=== PATIENT | female | born 1990 | race African-American/Black ===

== ENCOUNTER 2016-12-08 22:25 | Emergency (ER) | payer OTHER ==
--- NOTE | 2016-12-08 23:03 | ERRECORD ---
[facility] EMERGENCY RECORD HPI PELVIC PAIN (22:52 BLEW) CHIEF COMPLAINT: Patient presents for evaluation of pelvic pain. HISTORIAN: History provided by patient, patient is 37 wk female who presents with 2 hours of pelvic cramping. She states she has felt no cramping all day, but thought that maybe the baby was just "sleeping". Denies vag bleeding or fluid (just a d/c that has been present for weeks). Denies trauma. Cramping is occuring every 30 minutes or so (not regular). has been uneventful thus far and she is under the care of a doctor in [place]. SEVERITY: Maximum severity of symptoms moderate, Currently symptoms are moderate. TIME COURSE: Sudden onset of symptoms, are intermittent. ASSOCIATED WITH: No associated bright red blood per rectum, No associated chills, No associated constipation, No associated diarrhea, No associated fever, No associated flank pain, No associated groin pain, No associated hematemesis, No associated urinary tract infection signs or symptoms, No associated vomiting, No associated vaginal bleeding, Denies any other complaints. EXACERBATED BY: Patient's condition exacerbated by nothing. RELIEVED BY: Patient's condition relieved by nothing. ROS (22:54 BLEW) CONSTITUTIONAL: Historian denies chills, denies fever. GI: Historian denies constipation, denies diarrhea, denies hematemesis, denies vomiting. GENITOURINARY FEMALE: Historian denies vaginal bleeding. NOTES: All systems reviewed, negative except as described above. PAST MEDICAL HISTORY (22:31 MBOS) MEDICAL HISTORY: Flu vaccine not up to date, Tetanus immunization up to date, Pneumococcal vaccine not up to date. FEMALE SURGICAL HISTORY: Patient has no surgical history. PSYCHIATRIC HISTORY: No previous psychiatric history. SOCIAL HISTORY: Patient denies alcohol use, Patient denies drug use, Patient has no smoking history. KNOWN ALLERGIES No Known Drug Allergies CURRENT MEDICATIONS (22:30 MBOS) None VITAL SIGNS (22:28 MBOS) VITAL SIGNS: BP: 107/64, Pulse: 100, Resp: 20, Temp: 98.4 (Oral), Pain: 5, O2 sat: 97, Time: 12/08/2016 22:28. PHYSICAL EXAM (22:55 BLEW) CONSTITUTIONAL: Vital signs reviewed, Patient appears non toxic, &a-1R&a+25V*p+0X*[id number]*c202B*c15G*c2P*p-0X&a-25V&a+1R Name: Brunilda Sweet V : 1990 F26 MedRec: [id number] AcctNum: [id number] Prepared: Callie Dec 09, 2016 08:03 by Interface Page 1 of 3 pMD [facility] EMERGENCY RECORD Patient alert and oriented to person, place and time, Pt is in no apparent distress. HEAD: Head exam included findings of head atraumatic, normocephalic. EYES: Eye exam included findings of eyelids normal to inspection, Pupils equally round and reactive to light, Extraocular muscles intact. ENT: ENT exam normal, Nose exam normal, no nasal deformity, no bleeding from nares, Pharynx exam normal, Mouth exam normal, mucous membranes moist. NECK: Neck exam included findings of normal range of motion, Trachea midline. RESPIRATORY CHEST: Respiratory and chest exam normal, Breath sounds clear, No wheezing, No rales, Chest exam included findings of chest movement symmetrical, Chest expansion equal. CARDIOVASCULAR: Cardiovascular assessment normal, Cardiovascular exam included findings of heart rate regular rate and rhythm, Heart sounds normal. ABDOMEN FEMALE: Abdominal exam included findings of abdomen nontender, Bowel sounds normal, Uterus is enlarged c/w dates. No movement felt during my exam. BACK: Back exam included findings of normal inspection, range of motion normal, no costovertebral angle tenderness. UPPER EXTREMITY: Upper extremity exam included findings of inspection normal, Range of motion normal. LOWER EXTREMITY: Lower extremity exam included findings of inspection normal, Range of motion normal. NEURO: Neuro exam findings include patient oriented to person, place and time, Speech normal, no focal motor deficits, no focal sensory deficits. SKIN: Skin exam included findings of skin warm, dry, and normal in color. LYMPHATIC: Lymphatic exam normal. PSYCHIATRIC: Psychiatric exam included findings of patient oriented to person place and time, Normal affect. DOCTOR NOTES (22:55 BLEW) TEXT: Patient has good FHT by doppler. Explained that patient would need to be transferred for evaluation by U/S and toco monitoring. At that point, she said that she could now feel the baby and that she did not want to be transferred. I recommended continued monitoring and she decided to leave [place]. I suspect that she may be driving directly to another hospital rather than going through the transfer process. PROBLEM LIST No recorded problems DIAGNOSIS (22:53 MBOS) FINAL: PRIMARY: Decreased movement. &a-1R&a+25V*p+0X*[id number]*c202B*c15G*c2P*p-0X&a-25V&a+1R Name: Brunilda Sweet V : 1990 F26 MedRec: [id number] AcctNum: [id number] Prepared: TueDec 09, 2016 08:03 by Interface Page 2 of 3 pMD [facility] EMERGENCY RECORD PRESCRIPTION No recorded prescriptions DISPOSITION (22:53 MBOS) PATIENT: Disposition Type: Eloped, Disposition: Against Medical Advice, Patient left the department. Fraser: DOMINIQUE=DO Mendez Brandon MBOS=DAMI Portillo, Mulu &a-1R&a+25V*p+0X*[id number]*c202B*c15G*c2P*p-0X&a-25V&a+1R Name: Bashir Sweetpatricio Merino : 1990 F26 MedRec: [id number] AcctNum: [id number] Prepared: TueDec 09, 2016 08:03 by Interface Page 3 of 3 pMD MTDD
--- NOTE | 2016-12-08 23:06 | PICIS ---
[facility] EMERGENCY RECORD TRIAGE (TueDec 08, 2016 22:30 MBOS) TRIAGE NOTES: has not felt movement since this morning, started cramping about an hour ago. 37 weeks . (TueDec 08, 2016 22:30 MBOS) PATIENT: NAME: Brunilda Sweet V, AGE: 26, GENDER: female, : Tue1990, TIME OF GREET: TueDec 08, 2016 22:26, PREFERRED LANGUAGE: Azeri, ETHNICITY: Not or , ECODE BILLING MAP: [facility], SSN: [id number], Zip Code: [address], KG WEIGHT: [phone], PHONE: , , , PERSON ID: [id number], PCP: Out of town. (TueDec 08, 2016 22:30 MBOS) COMPLAINT: CRAMPING,NO MOVEMENT FELT FROM BABY. (TueDec 08, 2016 22:30 MBOS) ADMISSION: URGENCY: 3 Urgent, ADMISSION SOURCE: Home, TRANSPORT: CAR, BED: ER -05. (TueDec 08, 2016 22:30 MBOS) ASSESSMENT: Assessment: has not felt movement since this morning, started feeling cramping about an hour ago. Denies any bleeding or fluid leakage. (22:31 MBOS) PAIN: Patient complains of pain described as, cramping, on a scale 0-10 patient rates pain as 5. (22:31 MBOS) IMMUNIZATIONS: Flu vaccine not up to date, Tetanus immunization up to date, Pneumococcal vaccine not up to date. (22:31 MBOS) SIRS SCORING: Heart Rate 55-109 (0), Temp range 96.8-101.1 (0), respiratory rate 12-24 (0). (22:31 MBOS) PROVIDERS: TRIAGE NURSE: Mulu Portillo RN. (TueDec 08, 2016 22:30 MBOS) VITAL SIGNS: BP 107/64, Pulse 100, Resp 20, Temp 98.4, (Oral), Pain 5, O2 Sat 97, Time 12/08/2016 22:28. (22:28 MBOS) PREVIOUS VISIT ALLERGIES: No Known Drug Allergies. (TueDec 08, 2016 22:30 MBOS) No Known Drug Allergies. (22:31 MBOS) KNOWN ALLERGIES No Known Drug Allergies CURRENT MEDICATIONS (22:30 MBOS) None VITAL SIGNS (22:28 MBOS) VITAL SIGNS: BP: 107/64, Pulse: 100, Resp: 20, Temp: 98.4 (Oral), Pain: 5, O2 sat: 97, Time: 12/08/2016 22:28. NURSING ASSESSMENT: ABDOMEN (22:31 MBOS) CONSTITUTIONAL: Patient arrives ambulatory, Gait steady, History obtained from patient, Patient appears comfortable, Patient cooperative, Patient alert, Oriented to person, place and time, Skin warm, Skin dry, Skin normal in color, Mucous membranes pink, Mucous membranes moist, Patient is well-groomed, Patient complains of &a-1R&a+25V*p+0X*z5951P*c202B*c15G*c2P*p-0X&a-25V&a+1R Name: Brunilda Sweet V : 1990 F26 MedRec: [id number] AcctNum: [id number] Prepared: Callie Dec 09, 2016 08:08 by Interface Page 1 of 4 pMD [facility] EMERGENCY RECORD decreased movement, cramping. PAIN: cramping pain, on a scale 0-10 patient rates pain as 5. ABDOMEN: Abdomen assessment findings include abdomen symmetrical. GENITOURINARY FEMALE: Associated with vaginal discharge, moderate amount, of thin, white discharge, Patient reports normal discharge. Denies any fluid leakage from vagina., no associated vaginal bleeding, , per patient, Gestational age third trimester by history, : 2, Para: 0, Spontaneous abortions: 1, Patient states she is 36 weeks, 5 days gestation and had a previous miscarriage at 5 weeks. SAFETY: Side rails up, Cart/Stretcher in lowest position, Call light within reach, Hospital ID band on. NURSING PROCEDURE: DISCHARGE NOTE (22:51 MBOS) DISCHARGE: Patient signed out against medical advice, ambulating without assistance, driving self, unaccompanied, Notes: AMA form signed, risks explained. NURSING PROCEDURE: HEART TONES (22:42 MBOS) PATIENT IDENTIFIER: Patient actively involved in identification process, Patient's identity verified by patient stating name, Patient's identity verified by patient stating date, Patient's identity verified by hospital ID bracelet. HEART TONES: heart tones indicated for decreased movement, heart toned obtained with doppler, heart rate 132, Notes: Patient reports feeling movement now. SAFETY: Side rails up, Cart/Stretcher in lowest position, Call light within reach, Hospital ID band on. HPI PELVIC PAIN (22:52 BLEW) CHIEF COMPLAINT: Patient presents for evaluation of pelvic pain. HISTORIAN: History provided by patient, patient is 37 wk female who presents with 2 hours of pelvic cramping. She states she has felt no cramping all day, but thought that maybe the baby was just "sleeping". Denies vag bleeding or fluid (just a d/c that has been present for weeks). Denies trauma. Cramping is occuring every 30 minutes or so (not regular). has been uneventful thus far and she is under the care of a doctor in [place]. SEVERITY: Maximum severity of symptoms moderate, Currently symptoms are moderate. TIME COURSE: Sudden onset of symptoms, are intermittent. ASSOCIATED WITH: No associated bright red blood per rectum, No associated chills, No associated constipation, No associated diarrhea, No associated fever, No associated flank pain, No associated groin pain, No associated hematemesis, No associated urinary tract infection signs or symptoms, No associated vomiting, No associated vaginal bleeding, &a-1R&a+25V*p+0X*p0067C*c202B*c15G*c2P*p-0X&a-25V&a+1R Name: Brunilda Sweet V : 1990 F26 MedRec: [id number] AcctNum: [id number] Prepared: Callie Dec 09, 2016 08:08 by Interface Page 2 of 4 pMD [facility] EMERGENCY RECORD Denies any other complaints. EXACERBATED BY: Patient's condition exacerbated by nothing. RELIEVED BY: Patient's condition relieved by nothing. ROS (22:54 BLEW) CONSTITUTIONAL: Historian denies chills, denies fever. GI: Historian denies constipation, denies diarrhea, denies hematemesis, denies vomiting. GENITOURINARY FEMALE: Historian denies vaginal bleeding. NOTES: All systems reviewed, negative except as described above. PAST MEDICAL HISTORY (22:31 MBOS) MEDICAL HISTORY: Flu vaccine not up to date, Tetanus immunization up to date, Pneumococcal vaccine not up to date. FEMALE SURGICAL HISTORY: Patient has no surgical history. PSYCHIATRIC HISTORY: No previous psychiatric history. SOCIAL HISTORY: Patient denies alcohol use, Patient denies drug use, Patient has no smoking history. PHYSICAL EXAM (22:55 BLEW) CONSTITUTIONAL: Vital signs reviewed, Patient appears non toxic, Patient alert and oriented to person, place and time, Pt is in no apparent distress. HEAD: Head exam included findings of head atraumatic, normocephalic. EYES: Eye exam included findings of eyelids normal to inspection, Pupils equally round and reactive to light, Extraocular muscles intact. ENT: ENT exam normal, Nose exam normal, no nasal deformity, no bleeding from nares, Pharynx exam normal, Mouth exam normal, mucous membranes moist. NECK: Neck exam included findings of normal range of motion, Trachea midline. RESPIRATORY CHEST: Respiratory and chest exam normal, Breath sounds clear, No wheezing, No rales, Chest exam included findings of chest movement symmetrical, Chest expansion equal. CARDIOVASCULAR: Cardiovascular assessment normal, Cardiovascular exam included findings of heart rate regular rate and rhythm, Heart sounds normal. ABDOMEN FEMALE: Abdominal exam included findings of abdomen nontender, Bowel sounds normal, Uterus is enlarged c/w dates. No movement felt during my exam. BACK: Back exam included findings of normal inspection, range of motion normal, no costovertebral angle tenderness. UPPER EXTREMITY: Upper extremity exam included findings of inspection normal, Range of motion normal. LOWER EXTREMITY: Lower extremity exam included findings of inspection normal, Range of motion normal. NEURO: Neuro exam findings include patient oriented to person, &a-1R&a+25V*p+0X*s7161F*c202B*c15G*c2P*p-0X&a-25V&a+1R Name: Brunilda Sweet V : 1990 F26 MedRec: [id number] AcctNum: [id number] Prepared: Callie Dec 09, 2016 08:08 by Interface Page 3 of 4 pMD [facility] EMERGENCY RECORD place and time, Speech normal, no focal motor deficits, no focal sensory deficits. SKIN: Skin exam included findings of skin warm, dry, and normal in color. LYMPHATIC: Lymphatic exam normal. PSYCHIATRIC: Psychiatric exam included findings of patient oriented to person place and time, Normal affect. EVENTS TRANSFER: Triage to Emergency Emergency Room -05. (TueDec 08, 2016 22:30 MBOS) Removed from Emergency Emergency Room -05. (22:53 MBOS) DOCTOR NOTES (22:55 BLEW) TEXT: Patient has good FHT by doppler. Explained that patient would need to be transferred for evaluation by U/S and toco monitoring. At that point, she said that she could now feel the baby and that she did not want to be transferred. I recommended continued monitoring and she decided to leave AMA. I suspect that she may be driving directly to another hospital rather than going through the transfer process. PROBLEM LIST No recorded problems DIAGNOSIS (22:53 MBOS) FINAL: PRIMARY: Decreased movement. DISPOSITION (22:53 MBOS) PATIENT: Disposition Type: Eloped, Disposition: Against Medical Advice, Patient left the department. PRESCRIPTION No recorded prescriptions IMAGING (22:52 MBOS) AMA/LWBS: Image captured from scanner. *SUPPLY CHARGE SHEET: Image captured from scanner. ADMIN (TueDec 09, 2016 08:00 BLEW) DIGITAL SIGNATURE: DO Mendez Brandon. Fraser: BLEW=DO Mendez Brandon MBOS=DAMI Portillo, Mulu &a-1R&a+25V*p+0X*b5473B*c202B*c15G*c2P*p-0X&a-25V&a+1R Name: Mckenzie Sweettae Merino : 1990 F26 MedRec: [id number] AcctNum: [id number] Prepared: TueDec 09, 2016 08:08 by Interface Page 4 of 4 pMD MTDD
== END 2016-12-08 22:46 | disposition left against medical advice (07) ==
LOC: NAV ERS 22:25
DX: O36.8130 Decreased fetal movements, third trimester, not applicable or unspecified (principal)
CPT/HCPCS: 99283